=== PATIENT | male | born 1955 | race African-American/Black ===

== ENCOUNTER 2023-05-30 09:01 | Outpatient (CLI) | payer MEDICARE, SELFPAY ==
--- NOTE | ~2023-05-30 | NM_ITS ---
EXAMINATION: NM bone scan whole body DATE: 05/30/2023 13:39 INDICATION: Prostate cancer TECHNIQUE: 26.4 mCi Tc-99m HDP was administered intravenously. Delayed whole-body scintigrams were o btained. COMPARISON: CT abdomen and pelvis dated 05/30/2023 FINDINGS: Mild likely degenerative joint centered uptake at the bilateral acromioclavicular joints. More promin ent asymmetric uptake at the right sternoclavicular joint. No other suspicious foci of abnormal bone uptake. IMPRESSION: 1. Asymmetric moderate uptake at the sternoclavicular joint which in the absence of additional suspic ious bone lesions is most likely degenerative in etiology but would correlate with any prior outside imaging if available. Otherwise could consider obtaining plain radiographs for correlation. Reviewed, dictated and finalized at location A. SHER AND SANDER IMPRESSION: 1. Asymmetric moderate uptake at the sternoclavicular joint which in the absenc e of additional suspicious bone lesions is most likely degenerative in etiology but would correlate with any prior outside imaging if available. Otherwise cou ld consider obtaining plain radiographs for correlation.
--- NOTE | ~2023-05-30 | CT_ITS ---
EXAMINATION: CT abdomen pelvis w con DATE: 05/30/2023 09:37 INDICATION: Malignant neoplasm of prostate. TECHNIQUE: Computed tomography (CT) of the abdomen and pelvis was performed with 100 mL Omnipaque 350 intravenous contrast. Automated exposure control and iterative reconstruction technique were employe d. The dose-length product was 543.77 mGy-cm. COMPARISON: None. FINDINGS: The visualized portions of the lung bases demonstrate minimal atelectasis. No pleural effus ion. The heart size is normal. No pericardial effusion. There is a 12 mm hypodense mass in right hepa tic lobe. The gallbladder, spleen, pancreas, adrenal glands, and left kidney are normal. There is a 2 .3 cm cyst in right kidney. Stool distends the rectum. There is diverticulosis of the colon without e vidence of diverticulitis. There are bilateral inguinal hernias containing fat. The prostate is moder ately enlarged. There are no pathologically enlarged lymph nodes. There is no free intraperitoneal fl uid. There is mild lumbar spondylosis. IMPRESSION: 1. 12 mm liver mass, which may be benign or less likely malignant. Abdomen MRI without and with contr ast is recommended. Reviewed, dictated and finalized at location A. YING MACHINE OPERATOR IMPRESSION: 1. 12 mm liver mass, which may be benign or less likely malignant. Abdomen MRI without and with contrast is recommended.
[2023-05-30 09:30] LABS: Estimated Glomerular Filt Rate > 60
== END 2023-05-30 09:02 | disposition home or self-care (01) ==
PROVIDERS: PCP Internal Medicine; Visit Provider Urology
DX: C61 Malignant neoplasm of prostate (principal)
CPT/HCPCS: 74177; 78306; A9503; Q9967

== ENCOUNTER 2023-08-20 08:39 | Outpatient (CLI) | payer MEDICARE, SELFPAY ==
--- NOTE | ~2023-08-20 | MR_ITS ---
EXAMINATION: MR abdomen wo/w con DATE: 08/20/2023 09:37 INDICATION: Prostate cancer with liver mass on prior CT TECHNIQUE: Magnetic resonance imaging (MRI) of the abdomen was performed without and with 18 mL Multi jesenia intravenous contrast. Sequences included coronal T2-weighted SS-FSE, coronal and axial FS 2D-F IESTA, axial STIR FSE, axial T2-weighted SS-FSE, axial T2-weighted FS SS-FSE, axial diffusion-weighte d SE, axial dual-echo T1-weighted FSPGR, and axial and coronal T1-weighted LAVA. Postcontrast axial T 1-weighted LAVA images were obtained in a time course. Postcontrast coronal T1-weighted LAVA images w ere obtained. COMPARISON: CT abdomen and pelvis dated 05/30/2023 FINDINGS: Heart size is normal. No pericardial or pleural effusion. Bilateral gynecomastia. Gallbladder, spleen , pancreas, bilateral adrenal glands and left kidney are normal. 1.4 cm T2 hyperintense nonenhancing cyst at the posterolateral lower pole of the right kidney. 1.2 cm T1 and T2 hypointense subcapsular l esion at segment 7 of the right hepatic lobe which is without restricted diffusion and which remains without evident enhancement or surrounding enhancement throughout the entire course of postcontrast i maging consistent with a likely complex proteinaceous or hemorrhagic cyst. There is a 6 mm T1 hyperin tense lesion in the right hepatic lobe along the gallbladder fossa which demonstrates early arterial phase enhancement which persists through the 5 and 10 minute delayed images remaining isointense to t he aorta consistent with a flash filling hemangioma. Visualized portions of bowels are unremarkable. No pathologically enlarged abdominal or upper pelvic lymphadenopathy. Mild fibrovascular degenerative endplate changes at the periphery of a small Schmorl's node along the inferior endplate of L4. Bone marrow signal is otherwise normal throughout. IMPRESSION: 1. Likely benign cystic 1.4 cm hepatic lesion which remains without evident contrast enhancement thro ughout the entire course of postcontrast imaging. Additional benign 6 mm flash filling hepatic marlin ioma along the gallbladder fossa. No other lesions suspicious for metastatic disease Reviewed, dictated and finalized at location A. T TENDER IMPRESSION: 1. Likely benign cystic 1.4 cm hepatic lesion which remains without evident con trast enhancement throughout the entire course of postcontrast imaging. Additio nal benign 6 mm flash filling hepatic hemangioma along the gallbladder fossa. N o other lesions suspicious for metastatic disease
== END 2023-08-20 08:40 | disposition home or self-care (01) ==
PROVIDERS: PCP Internal Medicine; Visit Provider Urology
DX: D18.09 Hemangioma of other sites (principal); R16.0 Hepatomegaly, not elsewhere classified
CPT/HCPCS: 74183; A9577